=== PATIENT | male | born 1955 | race Caucasian/White ===

== ENCOUNTER 2018-05-12 22:28 | Emergency (ER) | payer BC ==
[~2018-05-12] VITALS: Ht 177.8 cm; Wt 81.7 kg
[2018-05-12] MEDS ORDERED: VESICARE 5 MG TA5 MG (22:38)
[2018-05-12] MEDS ORDERED: KEFLEX500 M1 PO (23:29)
[2018-05-12] MEDS ORDERED: HYDROCODONE-AP1 EAC6 PO (23:30)
[2018-05-12] MEDS ORDERED: IBUPROFEN 800800 M1 PO (23:30)
[2018-05-12 23:55] VITALS: BP 137/88
== END 2018-05-12 23:56 | disposition home or self-care (01) ==
LOC: M.ERS 22:28
DX: S61.211A Laceration without foreign body of left index finger without damage to nail, initial encounter (principal); Z88.0 Allergy status to penicillin; W26.8XXA Contact with other sharp object(s), not elsewhere classified, initial encounter; Y93.89 Activity, other specified; Y92.89 Other specified places as the place of occurrence of the external cause; Y99.8 Other external cause status